=== PATIENT | female | born 1970 ===

== ENCOUNTER 2017-02-14 19:19 | Emergency (ER) | payer SELFPAY ==
[2017-02-14 19:44] VITALS: TEMP 97.9
--- NOTE | 2017-02-14 20:56 | C.PDOC ---
History Of Present Illness 46 year old patient presents to the emergency department complaining of left foot pain that started 3 weeks ago. Patient states she twisted it while walking. She has been taking Aleve with some relief but still pain on ambulation. Patient denies fever, chills, numbness, or weakness. Time Seen by Provider: 02/14/17 19:53 Chief Complaint (Nursing): Lower Extremity Problem/Injury History Per: Patient History/Exam Limitations: no limitations Onset/Duration Of Symptoms: Other (3 weeks) Current Symptoms Are (Timing): Still Present Severity: Mild Pain Scale Rating Of: 3 Recent travel outside of the [place]: No - Ankle/Foot Description Of Injury: Twisted Past Medical History Reviewed: Historical Data, Nursing Documentation, Vital Signs Vital Signs: Last Vital Signs Temp 97.9 F 02/14/17 19:40 Pulse 75 02/14/17 20:59 Resp 18 02/14/17 20:59 BP 124/72 02/14/17 20:59 Pulse Ox 100 02/14/17 21:10 Family History: States: Unknown Family Hx - Social History Hx Alcohol Use: No Hx Substance Use: No - Immunization History Hx Tetanus Toxoid Vaccination: No Hx Influenza Vaccination: No Review Of Systems Except As Marked, All Systems Reviewed And Found Negative. Constitutional: Negative for: Fever, Chills Musculoskeletal: Positive for: Foot Pain (left) Neurological: Negative for: Weakness, Numbness Physical Exam - Physical Exam Appears: Non-toxic, No Acute Distress Skin: Warm, Dry Cardiovascular: Rhythm Regular Extremity: Normal ROM, No Pedal Edema, No Calf Tenderness, Capillary Refill (<2 seconds), No Deformity, Other (left ankle : (+)tenderness to the medial malleolus; (+)tenderness to the medial forefoot (+)minimal swelling to the proximal forefoot) Neurological/Psych: Oriented x3, Normal Motor, Normal Sensation Gait: Steady ED Course And Treatment O2 Sat by Pulse Oximetry: 100 (room air) Pulse Ox Interpretation: Normal - Other Rad left ankle X-Ray: Viewed By Me Interpretation: no fractures or dislocations left foot X-Ray: Interpreted by Me, Viewed By Me Interpretation: No fx or dislocation Progress Note: Plan: -Left foot x-ray. -Left ankle x-ray. -Reassess and disposition. Pt placed in PIOTR wrap by CP and advised to continue NSAIDS and f/ u with PMD Disposition Counseled Patient/Family Regarding: Diagnosis, Need For Followup - Disposition Referrals: [facility] [place] [Outside] Disposition: HOME/ ROUTINE Disposition Time: 20:54 Condition: STABLE Additional Instructions: Continue aleve for pain Follow up in clinic Return to ER if worse Instructions: Ankle Sprain (ED) Print Language: CZECH - Clinical Impression Clinical Impression: Ankle sprain - PA / ED CASE MANAGER / Resident Statement MD/DO has reviewed & agrees with the documentation as recorded. - Scribe Statement The provider has reviewed the documentation as recorded by the Scribe Dora Holliday All medical record entries made by the Scribe were at my direction and personally dictated by me. I have reviewed the chart and agree that the record accurately reflects my personal performance of the history, physical exam, medical decision making, and the department course for this patient. I have also personally directed, reviewed, and agree with the discharge instructions and disposition.
[2017-02-14 21:01] VITALS: BP 124/72; PULSE 75; RESP 18
[2017-02-14 21:07] VITALS: O2SAT 100
--- NOTE | 2017-02-15 09:53 | RAD ---
PROCEDURE: Left Foot Radiographs. HISTORY: pain, twisting injury COMPARISON: None. FINDINGS: BONES: Normal. No fracture. JOINTS: Normal. SOFT TISSUES: Normal. OTHER FINDINGS: None. IMPRESSION: Normal left foot radiographs.
--- NOTE | 2017-02-15 09:55 | RAD ---
PROCEDURE: Left Ankle Radiographs. HISTORY: pain, twisting injury COMPARISON: None FINDINGS: BONES: Normal. No fracture. JOINTS: Normal. No osteoarthritis. Ankle mortise maintained. Talar dome intact SOFT TISSUES: Soft tissue swelling lateral side OTHER FINDINGS: None. IMPRESSION: Soft tissue swelling. No fracture
== END 2017-02-14 21:00 | disposition home or self-care (01) ==
LOC: C.ER 19:19
DX: S93.402A Sprain of unspecified ligament of left ankle, initial encounter (principal); X50.9XXA Other and unspecified overexertion or strenuous movements or postures, initial encounter; Y93.01 Activity, walking, marching and hiking